=== PATIENT | male | born 1995 | race Caucasian/White ===

== ENCOUNTER 2019-01-15 19:59 | Emergency (ER) | payer OTHER ==
[~2019-01-15] VITALS: Ht 177.8 cm; Wt 70.3 kg
[2019-01-15] MEDS ORDERED: CHLORHEXIDINE FL1 ML MISC (20:25)
[2019-01-15] MEDS ORDERED: HYDROXYZINE HCL25 MG PO (20:26)
[2019-01-15] MEDS ORDERED: MAVYRET 100-401 EACH PO (20:26)
[2019-01-15] MEDS ORDERED: REMERON30 MG PO (20:27)
== END 2019-01-15 21:35 | disposition home or self-care (01) ==
LOC: ED 19:59
DX: S16.1XXA Strain of muscle, fascia and tendon at neck level, initial encounter (principal); S00.83XA Contusion of other part of head, initial encounter; Y04.8XXA Assault by other bodily force, initial encounter; Z91.018 Allergy to other foods; Z88.8 Allergy status to other drugs, medicaments and biological substances; Z79.899 Other long term (current) drug therapy
CPT/HCPCS: 70450; 70486; 72125; 99284-25